=== PATIENT | female | born 1975 | race Caucasian/White ===

== ENCOUNTER 2025-09-24 09:48 | Outpatient (REF) | payer OTHER, SELFPAY ==
--- OUTSIDE RECORDS SUMMARY | 2025-09-24 10:34 | XMS_ITS | Clinical Summary ---
Author Organization [facility] Address [address] [place] [address] Phone Care Team Providers Care Painter Touch Up Name Role Phone Physician, No Pcp Primary Care Provider Unavaila ble Allergies No known active allergies Medications levothyroxine (SYNTHROID, LEVOTHROID) 137 mcg tablet Take 1 tablet (137 mcg total) by mouth 1 (one) time each day. Active lisinopril-hydro CHLOROthiazide (PRINZIDE,ZESTOR ETIC) 10-12.5 mg per tablet Take 1 tablet by mouth 1 (one) time each day. Active oxyCODONE (ROXICODONE) 5 mg immediate release tablet Take 1 tablet (5 mg total) by mouth every 6 (six) hours if needed for severe pain. Max Daily Amount: 20 mg 12 tablet 12/07/2024 Active oxyBUTYnin (DITROPAN) 5 mg tablet Take 1 tablet (5 mg total) by mouth 3 (three) times a day if needed (spasms) for up to 20 doses. 20 each 12/23/2024 Active oxyCODONE (ROXICODONE) 5 mg immediate release tablet Take 1 tablet (5 mg total) by mouth every 6 (six) hours if needed for severe pain for up to 6 doses. Max Daily Amount: 20 mg 6 tablet 12/23/2024 Active phenazopyridine (Pyridium) 200 mg tablet Take 1 tablet (200 mg total) by mouth 3 (three) times a day if needed (dysuria) for up to 10 doses. 10 tablet 12/23/2024 Active Active Problems Problem Noted Date Diagnosed Date Hydronephrosis with ureteral calculus 12/07/2024 Surgical History Surgery Date Site/Laterality Comments TUBAL LIGATION OTHER SURGICAL HISTORY CARPAL TUNNEL RELEASE Left CYSTOSCOPY INSERTION OF STENTS Medical History Medical History Date Comments HTN (hypertension) Hypothyroidism BPPV (benign paroxysmal positional vertigo) NISSA (obstructive sleep apnea) Chronic kidney disease Dizziness Arthritis Joint pain fingers Social History Tobacco Use Types Packs/Day Years Used Date Smoking Tobacco: Never Tobacco Cessation:Counseling Given: Not Answered Alcohol Use Standard Drinks/Week Comments Not Currently 0 (1 standard drink = 0.6 oz pur e alcohol) Interpersonal Safety Answer Date Record ed Physical Abuse Unrecognized value 12/23/2024 Verbal Abuse Unrecognized value 12/23/2024 Comments No Sex and Gender Information Value Date Recorded Sex Assigned at Female 12/06/2024 8:09 PM EDT Legal Sex Female 5:19 PM EST Gender Identity Female 12/06/2024 8:09 PM EDT Sexual Orientation Straight 12/06/2024 8: 09 PM EDT Last Filed Vital Signs Vital Sign Reading Time Taken Comments Blood Pressure 114/80 12/23/2024 9:56 AM EDT Pulse 65 12/23/2024 9:56 AM EDT Temperature 36.4 C (97.5 F) 12/23/2024 9:56 AM EDT Respiratory Rate 16 12/23/2024 9:56 AM EDT Oxygen Saturation 100% 12/23/2024 9:56 AM EDT Inhaled Oxygen Concentration - - Weight 79.8 kg (176 lb) 12/18/2024 10:00 AM EDT Height 160 cm (5' 3 ) 12/18/2024 10:00 AM EDT Body Mass Index 31.18 12/18/2024 10:00 AM EDT Plan of Treatment Health Maintenance Due Date Last Done Comments Colorectal Cancer Screening: Colonoscopy 1975 Hepatitis B Vaccines (1 of 3 - 19+ 3-dose series) 1994 Cervical Cancer Screening: Pap Smear 1996 Breast Cancer Screening 12/09/2019 12/08/2017 Depression Screening 09/25/2024 Cholesterol Screening (Lipid Panel) 12/07/2024 12/11/2017, 12/11/2017 Hepatitis C Screening 12/07/2024 Social Influencers of Health Screening 12/07/2024 COVID-19 Vaccine ( season) 2025 05/22/2024, 01/16/2023, 10/04/2021, Additional history exists Influenza Vaccine (#1) 2025 , 06/05/2022, 12/30/2021, Additional history exists Pneumococcal Vaccine: 50+ Years (1 of 1 - PCV) 2025 Zoster Vaccines (1 of 2) 2025 Hypertension/CHF/CAD Annual BMP Blood Test 12/07/2025 12/07/2024, 12/06/2024, 12/11/2017 DTaP,Tdap,and Td Vaccines (6 - Td or Tdap) 04/17/2028 04/17/2018, 11/16/2017, 08/06/2008, Additional history exists RSV Immunization Adult Patients (1 - 1-dose 75+ series) 2050 HIV Screening Completed 12/11/2017 MMR Vaccines Aged Out 02/25/2021 No longer eligi ble based on patient's age to complete this topic HIB Vaccines Aged Out No longer eligi ble based on patient's age to complete this topic HPV Vaccines Aged Out No longer eligi ble based on patient's age to complete this topic Hepatitis A Vaccines Aged Out No long er eligible based on patient's age to complete this topic IPV Vaccines Aged Out No longer eligi ble based on patient's age to complete this topic Meningococcal ACWY Vaccine Aged Out N o longer eligible based on patient's age to complete this topic Meningococcal B Vaccine Aged Out No l onger eligible based on patient's age to complete this topic RSV Immunization Patients Under 20 months Aged Out No longer eligible based on patient's age to complete this topic Varicella Vaccines Aged Out No longer eligible based on patient's age to complete this topic Medical Devices Implanted Type Area Denier Control Operator Device Identifier Shelf Expiration Date Model / Serial / Lot Stent Uret [id number] Contr Percuflex Hydroplus - Sna - [id number] Implanted:Qty: 1 on 12/07/2024 by Logan Squires MD at [facility] Stents Right: Ureter [employer] 07/31/2027 [id number] / NA / [id number] Stent Uret [id number] Contr Percuflex Hydroplus - Sna - [id number] Implanted:Qty: 1 on 12/23/2024 by Marty Hendrix MD at [facility] Stents Right: U[employer] [id number] 08/14/2027 [id number] / NA / [id number] Procedures Procedure Name Priority Date/Time Associated Diagnosis Comments BASIC METABOLIC PANEL Routine 12/07/2024 5:56 AM EDT DINAH SCREENING DIGITAL Routine 12/08/2017 8:02 AM EDT Encounter for screening mammogram for malignant neoplasm of breast from Last 3 Months or Most Recently Relevant to Health Maintenance Results * Basic metabolic panel (12/07/2024 5:56 AM EDT) Sodium 138 133 - 145 mmol/L LAB CHEMISTRY METHOD 12/07/2024 7:48 AM [facility] Potassium 3.6 3.5 - 5.5 mmol/L LAB CHEMISTRY METHOD 12/07/2024 7:48 AM [facility] Chloride 106 96 - 110 mmol/L LAB CHEMISTRY METHOD 12/07/2024 7:48 AM [facility] CO2 26 21 - 32 mmol/L LAB CHEMISTRY METHOD 12/07/2024 7:48 AM [facility] Anion Gap 6 3 - 11 LAB CHEMISTRY METHOD 12/07/2024 7:48 AM [facility] Glucose 97 70 - 100 mg/dL LAB CHEMISTRY METHOD 12/07/2024 7:48 AM [facility] BUN 8 5 - 25 mg/dL LAB CHEMISTRY METHOD 12/07/2024 7:48 AM [facility] Creatinine 0.99 0.50 - 1.10 mg/dL LAB CHEMISTRY METHOD 12/07/2024 7:48 AM [facility] eGFR 70 >=60 mL/min/1. 73m2 LAB CHEMISTRY METHOD 12/07/2024 7:48 AM EDT [facility] Comment:Calculation based on the Chronic Kidney Disease Epidemiology Collaboration (CKD-EPI) equation refit without adjustment for race. BUN/Creatinine Ratio 8.1 LAB CHEMISTRY METHOD 12/07/2024 7:48 AM EDT [facility] Calcium 8.6 8.5 - 10.5 mg/dL LAB CHEMISTRY METHOD 12/07/2024 7:48 AM EDT [facility] Blood Venous blood specimen / Unknown Venipuncture / Unknown 12/07/2024 5:56 AM EDT 12/07/2024 6:48 AM EDT us Jameel Grijalva MD LAB BLOOD ORDERABLES Final Result [facility] [address] [place] [address], * DINAH SCREENING DIGITAL (12/08/2017 8:02 AM EDT) Anatomical Region Laterality Modality Mammography 12/07/2017 9:43 AM EDT Narrative 12/08/2017 8:02 AM EDT [facility] Diagnostic Imaging Department [address] [place] [address] Patient: MARIALUISA RAMIREZ./Age/Sex: 1975 - 42 - F Unit#: [id number] Location/Status: SPDIMAM/REG CLI Mnemonic/Ordering Site: [facility] Ordering Physician: OWEN GEIGER Dinah Screening Digital - 12/07/17 - 1001 EXAM: [facility] Screening Digital EXAM DATE AND TIME: 12/07/2017 10:02 AM HISTORY: First degree family history of breast cancer (mother at age 32). IMAGING: Standard CC/MLO views. The patient declined tomosynthesis. COMPARISON(S): 11 March 2016. TISSUE DENSITY: C: The breasts are heterogeneously dense, which may obscure small masses. FINDINGS: Benign-appearing microcalcifications are noted in both breasts. No irregular mass, grouped suspicious microcalcifications, area of abnormal skin thickening or lymphadenopathy. IMPRESSION: No findings suspicious for malignancy. Please note, a negative imaging evaluation should never overrule a strongly suspicious finding on physical exam. In addition, the patient should be advised that tomosynthesis can be particularly helpful for breast cancer screening in patients with this breast density, both in increasing sensitivity for malignancy and in reducing callbacks. BI-RADS: Category 2: Benign BILATERAL RECOMMENDATION(S): 1: Routine screening mammogram BILATERAL in 1 year. COMMENTS: None. [id number], [id number], [id number] Dictating Physician: LEO ESCOBAR MD Electronically Signed by: LEO ESCOBAR MD Dic Date/Time: 12/08/17 0759 Sign date/Time: 12/08/17 0802 Procedure Note Leo Escobar MD - 09/13/2022 [facility] Diagnostic Imaging Department [address] [place] [address] Patient: MARIALUISA RAMIREZ /Age/Sex: 1975 - 42 - F Unit#: [id number] Location/Status: [facility]/REG CLI Mnemonic/Ordering Site: [facility] Ordering Physician: OWEN GEIGER Dinah Screening Digital - 12/07/17 - 1001 EXAM: Dinah Screening Digital EXAM DATE AND TIME: 12/07/2017 10:02 AM HISTORY: First degree family history of breast cancer (mother at age32). IMAGING: Standard CC/MLO views. The patient declined tomosynthesis. COMPARISON(S): 11 March 2016. TISSUE DENSITY: C: The breasts are heterogeneously dense, which mayobscure small masses. FINDINGS: Benign-appearing microcalcifications are noted in both breasts. Noirregular mass, grouped suspicious microcalcifications, area of abnormal skinthickening or lymphadenopathy. IMPRESSION: No findings suspicious for malignancy. Please note, a negative imaging evaluation should never overrule astrongly suspicious finding on physical exam. In addition, the patient should be advised that tomosynthesis can be particularly helpful for breast cancer screening in patients with thisbreast density, both in increasing sensitivity for malignancy and in reducing callbacks. BI-RADS: Category 2: Benign BILATERAL RECOMMENDATION(S): 1: Routine screening mammogram BILATERAL in 1 year. COMMENTS: None. [id number], [id number], [id number] Dictating Physician: LEO ESCOBAR MD Electronically Signed by: LEO ESCOBAR MD Dic Date/Time: 12/08/17 0759 Sign date/Time: 12/08/17 0802 Owen NUNN IMG BI PROCEDURES Final Result from Last 3 Months or Most Recently Relevant to Health Maintenance Insurance [facility] MEDICAID ADVANTAGE Advance Directives * Full Code - Default (Latest Code Status on File) Date Activated Date Inactivated Comments 12/07/2024 1:12 AM 12/07/2024 8:49 PM This is orde r is used when code status has not been discussed with the patient, or code status is otherwise unknown/unconfirmed To update the patient's code status, place a code status order. Do not modify or discontinue any currently active code status orders. Care Teams Painter Touch Up Relationship Specialty Start Date End Date Physician, No Pcp PCP - General 12/23/24
--- OUTSIDE RECORDS SUMMARY | 2025-09-24 10:34 | XMS_ITS | Patient Health Record ---
Author Organization [facility] Address [address] [place] [phone] Support Name Relationship Address Phone VIOLET RAMIREZ Guarantor Unknown [phone] Reason For Referral No Information Plan Of Treatment No Information
--- OUTSIDE RECORDS SUMMARY | 2025-09-24 10:34 | XMS_ITS | Encounter Summary ---
Author Organization [facility] Address [address] [place] [address] Care Team Providers Care Cocoa Milling Machine Operator Name Role Phone Physician, No Pcp Primary Care Provider Unavaila ble Encounter Details Date Type Department Care Team (Late st Contact Info) Description 12/13/2024 Lab Requisition [facility] - Main Lab [address] [place] [id number] Marty Hendrix MD [address] [address] Urinary tract infection, site not specified Social History Tobacco Use Types Packs/Day Years Used Date Smoking Tobacco: Never Interpersonal Safety Answer Date Record ed Physical Abuse Unrecognized value 12/07/2024 Verbal Abuse Unrecognized value 12/07/2024 Comments Unknown Sex and Gender Information Value Date Recorded Sex Assigned at Female 12/06/2024 8:09 PM EDT Legal Sex Female 5:19 PM EST Gender Identity Female 12/06/2024 8:09 PM EDT Sexual Orientation Straight 12/06/2024 8: 09 PM EDT documented as of this encounter Functional Status * Are you deaf or do you have serious difficulty hearing? Answer Date of Assessment Author No 12/06/2024 7:58 PM EDT Tamara Romero RN * Are you blind or do you have serious difficulty seeing, even when wearing glasses? Answer Date of Assessment Author No 12/06/2024 7:58 PM EDT Tamara Romero RN * Do you have serious difficulty walking or climbing stairs? Answer Date of Assessment Author No 12/06/2024 7:58 PM EDT Tamara Romero RN * Do you have serious difficulty dressing or bathing? Answer Date of Assessment Author No 12/06/2024 7:58 PM EDT Tamara Romero RN * Because of a physical, mental, or emotional condition, do you have serious difficulty doing errandsalone such as visiting the doctor? Answer Date of Assessment Author No 12/06/2024 7:58 PM EDT Tamara Romero RN documented as of this encounter Mental Status * Because of a physical, mental, or emotional condition, do you have serious difficulty concentrating, remembering, or making decisions? (5 years old or older) Answer Entry Date Author No 12/06/2024 7:58 PM EDT Tamara Romero RN documented in this encounter Plan of Treatment Not on file documented as of this encounter Procedures Procedure Name Priority Date/Time Associated Diagnosis Comments CULTURE URINE Routine 12/13/2024 3:48 PM EDT Urinary tract infection, site not specified documented in this encounter Results * Culture urine (12/13/2024 3:48 PM EDT) Culture, Urine 10,000-49,000 CFU/mL Mixed urogenital greg, no uropathogens present. Suggest repeat specimen if clinically indicated. 12/15/2024 11:27 AM EDT [facility] Urine Urine specimen from urethra / Unknown 12/13/2024 3:48 PM EDT 12/13/2024 6:34 PM EDT us Marty Hendrix MD LAB MICROBIOLOGY - G ENERAL ORDERABLES Final Result [facility] [address] [place] [address], documented in this encounter Visit Diagnoses Diagnosis Urinary tract infection, site not specified documented in this encounter Care Teams Cocoa Milling Machine Operator Relationship Specialty Start Date End Date Physician, No Pcp PCP - General 12/23/24 documented as of this encounter
[2025-09-24 16:32] LABS: Hemoglobin 9.9 g/dl (12.0-16.0); Imm Gran Abs Auto 0.01 X10*3/uL (0.00-0.03); Imm Gran Pct Auto 0.2 % (0.0-0.4); MANUAL DIFF FLAG SCAN; NRBC Abs Auto 0.000 X10*3/uL (0.0-0.012); NRBC Pct Auto 0.0 /100WBC (0.0-0.2); SCAN SMEAR FLAG 1
[2025-09-24 16:34] LABS: Hematocrit 33.8 % (37.0-47.0); Lymphocytes Absolute Auto 1.7 X10*3/uL (1.2-4.9); Mean Corpuscular HGB Conc 29.3 g/dl (31.0-35.0); Mean Corpuscular Hemoglobin 20.9 pg (27.0-33.0); Mean Corpuscular Volume 71.3 fL (80.0-98.0); Platelet Count 258 X10*3/uL (160-400); Red Blood Count 4.74 X10*6/uL (4.20-5.50); White Blood Count 4.7 X10*3/uL (4.8-10.8)
[2025-09-24 17:02] LABS: PLT ABN DIST 1
[2025-09-24 17:38] LABS: Anion Gap 11 (12-20); Blood Urea Nitrogen 13 mg/dL (9-16); Calcium 8.6 mg/dL (8.4-10.2); Carbon Dioxide 24 mmol/L (22-29); Chloride 108 mmol/L (96-108); Cholesterol 271 mg/dL (<200); Estimated Glomerular Filt Rate > 60; HDL Cholesterol 69 mg/dL (>40); Potassium 3.6 mmol/L (3.3-5.1); Sodium 139 mmol/L (135-145); Triglycerides 115 mg/dL (<150)
[2025-09-24 21:11] LABS: Free T4 (Free Thyroxine) < 0.42 ng/dL (0.71-1.85)
[2025-09-25 05:21] LABS: HIV Num 1 0.07 S/CO (0.00-0.99); ~HepC Num1 0.15 S/CO (0.00-0.79); ~Hepatitis C Antibody Nonreactive (Nonreactive)
== END 2025-09-24 09:49 | disposition home or self-care (01) ==
LOC: HO.CHCLDS 09:48
DX: Z11.59 Encounter for screening for other viral diseases (principal); Z11.4 Encounter for screening for human immunodeficiency virus [HIV]; I10 Essential (primary) hypertension; E03.9 Hypothyroidism, unspecified
CPT/HCPCS: 36415; 80048; 80061; 84439; 84443; 85025; 86803; 87389